=== PATIENT | male | born 1960 | race Caucasian/White ===

== ENCOUNTER 2024-03-15 21:17 | Emergency (ER) | payer MEDICARE, SELFPAY ==
[2024-03-15 21:18] VITALS: BMI 33.5
[2024-03-15 21:27] VITALS: BP 125/73; PULSE 86; RESP 20; TEMP 37; O2SAT 96
--- NOTE | 2024-03-15 21:44 | EDNOTE_ITS ---
Upper Extremity Injury RME/HPI General Chief Complaint: Hand/Wrist Problems Stated Complaint: NEED RING TO LEFT RING FINGER CUT OFF Time Seen by Provider: 03/15/24 21:43 Arrival date/time: 03/15/24 21:17 63 year old male present to Emergency room with c/o of needing ring removal from left hand. LOCATION: hand SEVERITY: Symptoms are described as being severe with limitations on activities of daily living QUALITY: Symptoms are described as being dull or achy CONTEXT: GLF 2 days ago. report unable to removed ring. DURATION/TIMING: The symptoms started approximately today ago and have been constant this then. ASSOCIATED SYMPTOMS: The patient is unable to identify any other associated symptoms. MODIFYING FACTORS: The patient is unable to identify any alleviating or aggravating symptoms. PERTINENT ROS: no fevers, no headache, no neck or chest pain, no unexplained nausea or vomiting, no focal neurological deficits REVIEW OF SYSTEMS: See History of Present Illness - with the exception of those mentioned in the history of present illness, all other systems reviewed and reported as negative' GENERAL: In general the patient is awake, interactive, in an emergency department gurney. HEAD/EYES/EARS/NOSE/THROAT: normo-cephalic, atraumatic, mucus membranes are moist, anicteric, palpebral conjunctiva is pink, trachea is midline. BACK: normal range of motion without pain. NEUROLOGICAL: cranio-facial features are symmetric, moves all four extremities equally without obvious limitations or weakness. EXTREMITY: Left hand ring finger + swelling + ring noted. cap refill intact no tenderness to palpation over the long bones or large joints of the bilaterallower extremities, no joint swelling, no joint erythema, no unilateral leg swelling and no peripheral edema. SKIN: warm, dry, well-perfused, no jaundice, no rash, no telangiectasias or petechia. PSYCH: calm, cooperative, no evidence of psychosis or agitation Related Data Home Medications ?Medication ?Instructions ?Recorded ?Confirmed acetaminophen 500 mg tablet 500 mg PO TID 03/01/22 03/01/22 aspirin 81 mg tablet 81 mg PO QDAY 03/01/22 03/01/22 atorvastatin 80 mg tablet 80 mg PO HS 03/01/22 03/01/22 clopidogrel 75 mg tablet 75 mg PO QDAY 03/01/22 03/01/22 ezetimibe 10 mg tablet 10 mg PO QDAY 03/01/22 03/01/22 gabapentin 300 mg capsule 300 mg PO TID 03/01/22 03/01/22 metoprolol succinate 100 mg 100 mg PO QDAY 03/01/22 03/01/22 tablet,extended release 24 hr valsartan 320 mg tablet 320 mg PO QDAY 03/01/22 03/01/22 Allergies Allergy/AdvReac Type Severity Reaction Status Date / Time No Known Allergies Allergy Verified 03/15/24 21:18 Course Quality Measures none Vital Signs Vital signs: Vital Signs Temperature 98.6 F 03/15/24 21:27 Pulse Rate 86 03/15/24 21:27 Respiratory Rate 20 03/15/24 21:27 Blood Pressure 125/73 03/15/24 21:27 Pulse Oximetry (%) 96 03/15/24 21:27 Oxygen Delivery Method Room Air 03/15/24 21:27 Procedures -ED Foreign Body Removal Time Out Performed: yes Site: left (ring finger) Description of foreign body: other (ring) Technique: other (ring cutter ) Confirmed by:: direct visualization Complications: none Post-procedure exam: awake, alert Neurovascular: normal distal pulse, normal capillary fill, distal light touch sensation intact, distal motor function normal and no signs of compartment syndrome Extremity Injury Patient data External records reviewed:: None Clinical information provided by:: patient Social determinants that could affect healthcare access:: none (none ) Patient has the following chronic illnesses:: none How is presenting disease/condition affected by chronic disease/condition?: uneffected by Evaluation data The following diagnostics were reviewed and interpreted by me:: other (specify) Lab and/or radiology exams considered but not ordered:: none Interpretation Summary: none Medications / Prescriptions Medications or Prescriptions considered but not ordered:: none Medication administrations:: none Consultations Consultation(s) initiated? (list below): No Diagnosis Upper Extremity Injury Differential Diagnosis: other (ring stuck on finge r) Most likely diagnosis given after review of the tests above:: ring stuck on finger Admission Indicated Admission indicated?: not indicated Admission Request Was there a request for admission?: No Disposition Plan Disposition Plan: Discharge Discharge Attestation Discharge Attestation: The patient and all family members were given an opportunity to ask questions and understood the discharge instructions. Discharge instructions specifically effects, indications for sooner follow up or return to the emergency department, and the expected course of current diagnosis. Patient condition: Stable Discharge Plan Plan Patient Disposition: HOME (Self Care) Prescriptions/Referrals Prescriptions/Med Rec: No Action atorvastatin 80 mg tablet 80 mg PO HS Patient Comments: TAKE 1 TABLET BY MOUTH EVERYDAY AT BEDTIME metoprolol succinate 100 mg tablet extended release 24 hr 100 mg PO QDAY Patient Comments: TAKE 1 TABLET BY MOUTH EVERY DAY clopidogrel 75 mg tablet 75 mg PO QDAY Patient Comments: TAKE 1 TABLET BY MOUTH EVERY DAY FOR 90 DAYS valsartan 320 mg tablet 320 mg PO QDAY Patient Comments: TAKE 1 TABLET BY MOUTH EVERY DAY gabapentin 300 mg capsule 300 mg PO TID Patient Comments: TAKE 1 CAPSULE BY MOUTH THREE TIMES A DAY aspirin 81 mg Tablet 81 mg PO QDAY ezetimibe 10 mg tablet 10 mg PO QDAY Patient Comments: TAKE 1 TABLET BY MOUTH EVERY DAY acetaminophen 500 mg Tablet 500 mg PO TID Problem List Clinical Impression: Ring or other jewelry causing external constriction, initial encounter Patient/Caregiver Discharge Instructions Print Language: Mosotho Stand Alone Forms: Daphnie Award Info., Patient Portal Info Letter
== END 2024-03-15 21:54 | disposition home or self-care (01) ==
LOC: SERX 21:57
PROVIDERS: Emergency Provider Emergency Medicine
DX: S60.445A External constriction of left ring finger, initial encounter (principal); W49.04XA Ring or other jewelry causing external constriction, initial encounter
CPT/HCPCS: 99282